=== PATIENT | female | born 1950 | race Caucasian/White ===

== ENCOUNTER 2017-07-07 10:23 | Day surgery (SDC) | payer MEDICARE ==
[2017-07-01 08:17] LABS: APPEARANCE,URINE CLEAR; BILIRUBIN,URINE NEGATIVE (NEGATIVE); COLOR,URINE YELLOW; GLUCOSE, URINE NEGATIVE (NEGATIVE); KETONES,URINE NEGATIVE (NEGATIVE); LEUKOCYTE ESTERASE,URINE SMALL (NEGATIVE); NITRITE,URINE NEGATIVE (NEGATIVE); PROTEIN,URINE NEGATIVE (NEGATIVE); URINE SPECIFIC GRAVITY 1.013; UROBILINOGEN,URINE NEGATIVE mg/dL (<2.0)
[2017-07-01 09:12] LABS: ABSOLUTE EOSINOPHILS # (AUTO) 0.1 10^3/uL (0.0-0.6); ABSOLUTE LYMPHOCYTES (AUTO) 1.9 10^3/uL (0.5-4.7); ABSOLUTE MONOCYTES (AUTO) 0.7 10^3/uL (0.1-1.4); BASOPHILS % (AUTO) 0.6 % (0-2); EOSINOPHILS % (AUTO) 1.9 % (0-6); HEMATOCRIT 39.4 % (36.0-47.0); HEMOGLOBIN 13.4 g/dL (12.0-15.5); LYMPHOCYTES % (AUTO) 24.3 % (13-45); MEAN CORPUSCULAR HEMOGLOBIN 28.7 pg (27.0-33.4); MEAN CORPUSCULAR VOLUME 85 fl (80-97); MONOCYTES % (AUTO) 9.1 % (3-13); PLATELET COUNT 239 10^3/uL (150-450); RED BLOOD COUNT 4.66 10^6/uL (3.72-5.28); RED CELL DISTRIBUTION WIDTH 13.7 % (11.5-14.0); SEGMENTED NEUTROPHILS % (AUTO) 64.1 % (42-78); TOTAL CELLS COUNTED % (AUTO) 100 %; WHITE BLOOD COUNT 7.8 10^3/uL (4.0-10.5)
[2017-07-01 09:44] LABS: ANION GAP 10 (5-19); BLOOD UREA NITROGEN 13 mg/dL (7-20); CALCIUM 10.2 mg/dL (8.4-10.2); CARBON DIOXIDE 27 mmol/L (22-30); CHLORIDE 105 mmol/L (98-107); GLUCOSE 91 mg/dL (75-110); POTASSIUM 4.1 mmol/L (3.6-5.0); SODIUM 141.7 mmol/L (137-145)
--- NOTE | 2017-07-01 10:09 | RADIOLOGY REPORT (SQ) ---
EXAM DESCRIPTION: CHEST PA/LATERAL COMPLETED DATE/TIME: 07/01/2017 9:16 am REASON FOR STUDY: PRE OP COMPARISON: None. EXAM PARAMETERS: NUMBER OF VIEWS: two views TECHNIQUE: Digital Frontal and Lateral radiographic views of the chest acquired. RADIATION DOSE: NA LIMITATIONS: none FINDINGS: LUNGS AND PLEURA: No opacities, masses or pneumothorax. No pleural effusion. MEDIASTINUM AND HILAR STRUCTURES: No masses or contour abnormalities. HEART AND VASCULAR STRUCTURES: Heart normal size. No evidence for failure. BONES: No acute findings. Degenerative changes in the spine. HARDWARE: None in the chest. OTHER: No other significant finding. IMPRESSION: NO SIGNIFICANT RADIOGRAPHIC FINDING IN THE CHEST. TECHNICAL DOCUMENTATION: JOB ID: [id number] [employer]- All Rights Reserved
--- NOTE | 2017-07-01 12:47 | EKG REPORT ---
SEVERITY:- OTHERWISE NORMAL ECG - SINUS RHYTHM BORDERLINE LEFT AXIS DEVIATION : Confirmed by: Helene Paul MD 01-Jul-2017 12:46:25
[~2017-07-07 10:23] MED LIST: CEFAZOLIN 2 GM/D5W RTU 2 GM/50 ML RTUPB IV PRN; LACTATED RINGERS 1000 ML IV PRN; LIDOCAINE 0.5% INJ-PF (5 MG/ML) 50 ML SDV SUBCUT PRN
[2017-07-07] MEDS ORDERED: METOPROLOL TARTRATE PF/INJ 5 MG/5 ML SDV IV ONE ×2 (12:09→12:30)
[2017-07-07] MEDS ORDERED: MIDAZOLAM 2 MG/2 ML INJ ONE (12:50)
[2017-07-07] MEDS ORDERED: FENTANYL CITRATE INJ/PF 100 MCG/2 ML AMPUL ONE (12:50)
[2017-07-07] MEDS ORDERED: PROPOFOL INJ 200 MG/20 ML VIAL IV ONE (12:51)
[2017-07-07] MEDS ORDERED: BUPIVACAINE HCL 0.25 % INJ/PF (2.5 MG/1 ML) 30 ML VIAL ONE (13:34)
[2017-07-07] MEDS ORDERED: MEPERIDINE HCL/PF INJ 25 MG/1 ML DISP.SYRIN IV PRN (14:31)
[2017-07-07] MEDS ORDERED: FENTANYL CITRATE INJ/PF 100 MCG/2 ML AMPUL IV PRN ×3 (14:31)
[2017-07-07] MEDS ORDERED: PROMETHAZINE HCL INJ 25 MG/1 ML VIAL IV PRN (14:31)
[2017-07-07] MEDS ORDERED: DIPHENHYDRAMINE HCL 50 MG/ML VIAL IV PRN (14:31)
[2017-07-07] MEDS ORDERED: MORPHINE SULFATE 10 MG/ML INJ IV PRN (14:31)
--- NOTE | 2017-07-07 15:15 | Operative Report ---
Operative Report DATE OF SURGERY: 07/07/17 PREOPERATIVE DIAGNOSIS: Subluxing right peroneal tendons POSTOPERATIVE DIAGNOSIS: Same OPERATION: Right ankle fibular groove deepening and peroneal retinacular repair SURGEON: WHIT ROBBINS ANESTHESIA: GA TISSUE REMOVED OR ALTERED: None COMPLICATIONS: none ESTIMATED BLOOD LOSS: 10 mL INTRAOPERATIVE FINDINGS: As above PROCEDURE: After receiving preoperative antibiotics in the holding area patient was brought to the operating room where she received a spinal anesthetic. Patient was placed in a lateral decubitus position in the beanbag. Axillary roll was applied. A thigh tourniquet was applied to the right lower extremity and the right lower extremity was prepped and draped in normal sterile surgical fashion. Timeout was done identifying the right ankle as the correct site. Esmarch was used to cannulate the extremity and the tourniquet was inflated at 3 a longitudinal incision was done at the posterior aspect of the fibula from the most distal tip of about fibula and cut 3 cm above it. Immediately the retinacular was exposed and released off of the lateral malleolus. I was able then to reflect the peroneal tendons and expose the flat fibular groove posteriorly. I used a 10 mm saw and then cut posteriorly on the lateral edge and on the medial edge posteriorly. I then connected them proximally and did a trapdoor type cup. I then used a bone tamps to then compress and deepen the fibular groove. Muscle satisfied with the groove deepening portion and then pulled on the retinaculum and make sure that dynamically the peroneal tendons would not sublux any longer. At this point and I drilled and placed my bio composite suture tack which was preloaded with #1 FiberWire. I then used a horizontal mattress to secure the retinaculum and tied and it further than it was prior. I did provocative maneuvers and did not have the peroneal tendons dislocate or sublux. Once I was happy then I proceeded to repair the remaining retinaculum using the remaining #1 FiberWire. Range of motion and provocative maneuvers were done one more time and there is no subluxation of the tendons anymore. I proceeded then to approximate the cutaneous tissue with 2-0 Vicryl and then 3-0 nylon horizontal interrupted stitches. Extremity was cleaned and then local anesthetic was injected. I used 1/4% Marcaine. No epinephrine in the Marcaine. I proceeded then to overwrap the wound with Xeroform 4 x 4 dressing and soft roll. Drapes were removed and the patient was placed in a short leg cast using fiberglass casting material. Patient then was transported to PACU in a stable condition.
--- NOTE | 2017-07-07 15:21 | PDOC DISCHARGE SUMMARY ---
Discharge Summary (SDC) - Discharge Final Diagnosis: Right ankle peroneal retinacular repair and fibular groove Date of Surgery: 07/07/17 Discharge Date: 07/07/17 Condition: Good Treatment or Instructions: Keep cast dry clean and intact. Toe-touch weightbearing. Follow-up in 10-14 days Prescriptions: Oxycodone HCl/Acetaminophen [Percocet 5-325 mg Tablet] 1 tab PO ASDIR PRN #25 tablet PRN Reason: Referrals: AVELINO FERNANDO MD [Primary Care Provider] - Respiratory Treatments at Home: Deep Breathing/Coughing Discharge Activity: No Driving, No Lifting/Push/Pulling Home Care Assistance: None Needed Adaptive Devices on Discharge: Standard Walker Report the Following to Your Physician Immediately: Shortness of Breath, Vomiting, Increase in Pain, Fever over 101 Degrees, Unusual Bleeding, Redness, Swelling, Warmth, Increased Soreness, Drainage-Yellow, Drainage-Bermudez, Drainage- Green, Drainage-Foul Smelling
[2017-07-07] MEDS ORDERED: OXYCODONE-ACETAMINOPHEN 5-325 MG TABLET ONE (15:57)
[2017-07-07 18:11] VITALS: BP 168/101
== END 2017-07-07 18:00 | disposition hospice, inpatient (51) ==
LOC: OROUT 10:23
PROVIDERS: ATTEND Orthopaedic Surgery
PROC: 0LQN0ZZ Repair Right Lower Leg Tendon, Open Approach (ICD-10-PCS; principal; 2017-07-07 12:45)
DX: S86.391A Other injury of muscle(s) and tendon(s) of peroneal muscle group at lower leg level, right leg, initial encounter (principal); X58.XXXA Exposure to other specified factors, initial encounter; I10 Essential (primary) hypertension; Z79.899 Other long term (current) drug therapy
CPT/HCPCS: 27675; 93005; 36415 ×2; 84132; 85025; 80048; 81001; 71046; 93010; C1713; J2250; J3010; J3490; A9270; J2704; J0690; 1810